=== PATIENT | female | born 1980 | race Caucasian/White ===

== ENCOUNTER 2019-12-08 13:42 | Inpatient (IN) | payer OTHER ==
[2019-12-08] MEDS ORDERED: Lidocaine 1% (PF) 30 ML VIAL ONE (14:20)
[2019-12-08] MEDS ORDERED: NS / Oxytocin 40 units/1000ml 1,000 ML ONE (14:20)
[2019-12-08] MEDS ORDERED: Misoprostol 200 MCG TAB ONE (14:21)
[2019-12-08] MEDS ORDERED: Ibuprofen 800 MG TAB PO PRN (14:30)
[2019-12-08] MEDS ORDERED: Acetaminophen 500 MG TAB PO PRN (14:30)
[2019-12-08] MEDS ORDERED: Carboprost 250 MCG/ML AMP IM PRN (14:30)
[2019-12-08] MEDS ORDERED: Methylergonovine 0.2 MG/ML VIAL IM PRN (14:30)
[2019-12-08] MEDS ORDERED: Promethazine HCl 25 MG/ML VIAL IM PRN (14:30)
[2019-12-08] MEDS ORDERED: Lactated Ringer's 1,000 ML IV SCH (14:30)
[2019-12-08] MEDS ORDERED: Misoprostol 200 MCG TAB PR PRN (14:30)
[2019-12-08] MEDS ORDERED: Lidocaine 1% (PF) 30 ML VIAL SC PRN (14:30)
[2019-12-08] MEDS ORDERED: NS / Oxytocin 40 units/1000ml 1,000 ML IV PRN (14:30)
[2019-12-08] MEDS ORDERED: HYDROcodone/Acetaminophen 5/325 mg Tablet PO PRN ×2 (14:30→18:37)
[2019-12-08] MEDS ORDERED: hydrALAZINE 20 MG/ML VIAL SLOW IVP PRN ×2 (14:30→18:37)
[2019-12-08] MEDS ORDERED: Ondansetron PF 4 MG/2 ML Vial IVP PRN (14:30)
[2019-12-08] MEDS ORDERED: Butorphanol Tartrate 1 MG/ML VIAL SLOW IVP PRN (14:30)
--- NOTE | 2019-12-08 14:35 | PDOC.LDHP ---
Labor and Delivery H&P Chief complaint: contractions HPI: CTX started 4 hours ago. Not really close together but getting more intense. hx significant for GDMA1 and thrombocytopenia of without bleeding issues. Current gestational age (weeks): 40 Due date: 12/07/19 Dating criteria: last menstrual period, first trimester ultrasound Grav: 9 Para: 7 Current complications: gestational diabetes, other (Thrombocytopenia of ) Abnormal US findings: No Current medications: pre-adele vitamins Allergies/Adverse Reactions: Allergies Allergy/AdvReac Type Severity Reaction Status Date / Time No Known Allergies Allergy Verified 05/13/17 16:01 Social history: none - Physical Exam Vital signs reviewed and normal: yes General: NAD, breathing through contractions Heart: RRR Lungs: CTAB Abdomen: gravid Extremeties: no edema FHT: category 1, variability present - Vaginal Exam cm dilated: 8 Effacement: 75% Station: 1+ - OB Labs Blood type: O RH: positive Antibody Screen: negative HIV: negative RPR: negative HEPSAg: negative 1 hour GCT: positive GBS: negative Urine drug screen: not done Rubella: immune - Assessment L&D Assessment: term patient in labor - Plan Plan: admit to L&D, informed consent obtained (Will repeat CBC after delivery for Platelets. H/O no pain meds with deliveries. Anticipate . Patient wants low intervention. Check accu-check for GDMA1.)
[2019-12-08 14:52] VITALS: BMI 28.1
[2019-12-08 14:58] LABS: Hemoglobin 12.6 g/dL (12.0-16.0); Mean Corpuscular HGB CONC 33.7 g/dL (32.0-36.0); Mean Corpuscular Volume 88.9 fL (78.0-98.0); Mean Platelet Volume 11.9 fL (7.4-10.4); Platelet Count 61 thou/uL (130-400); RBC Distribution Width 16.5 % (11.5-14.5); Red Blood Cell (RBC) Count 4.19 mill/uL (4.20-5.40); White Blood Cell (WBC) Count 4.9 thou/uL (4.8-10.8)
[2019-12-08 15:36] LABS: Syphilis Antibody Nonreactive (Nonreactive); Syphilis Antibody Index 0.04 S/CO (<1.00 Non-Reactive)
[2019-12-08 15:37] LABS: HBSAg Index 0.33 S/CO (0-0.99); Hep B Surf Ag Non-Reactive S/CO (NonReactive)
--- NOTE | 2019-12-08 16:17 | PDOC.OPDEL ---
OB Operative/Delivery Note Delivery Dr/Surgeon: Axel Pre-Delivery Diagnosis: active labor Procedure/Post Delivery Dx: spontaneous vaginal delivery (Head OA, no nuchal cord, shoulders and body easily followed. Cord clamped and cut. Cord blood to the lab. Baby to mother's abdomen.) Weeks gestation: 40 Anesthesia: none - Findings A Sex: female - 1 min: 9 - 5 min: 9 - Additional Findings/Plan Placenta delivered: spontaneous (Intact placenta, 3 vessel cord. Uterus firm after delivery.) Repaired Obstetrical Laceration: none Estimated blood loss: 250 Post delivery plan: routine recovery
[2019-12-08] MEDS ORDERED: Bisacodyl 10 MG SUPP PR PRN (18:37)
[2019-12-08] MEDS ORDERED: Milk Of Magnesia 30 ML UDCUP PO PRN (18:37)
[2019-12-08] MEDS ORDERED: Preparation H Ointment 28 GM TUBE PR PRN (18:37)
[2019-12-08] MEDS ORDERED: Lanolin Ointment 7 GM TUBE TOP PRN (18:37)
[2019-12-08] MEDS ORDERED: Benzocaine-Menthol 82.5 ML CAN TOP PRN (18:37)
[2019-12-08] MEDS ORDERED: NS / Oxytocin 40 units/1000ml 1,000 ML IV SCH (18:37)
[2019-12-08] MEDS ORDERED: Acetaminophen 325 MG TAB PO PRN (19:47)
[2019-12-08] MEDS: Docusate Calcium (SURFAK) 240 MG CAP PO SCH (20:47)
[2019-12-08] MEDS: Ferrous Sulfate 325 MG TAB PO SCH (20:48)
[2019-12-08] MEDS ORDERED: Ibuprofen 800 MG TAB PO SCH (22:00)
[2019-12-09 06:19] LABS: #Eosinphils 0.1 thou/uL (0.0-0.7); #Lymphocytes 2.1 thou/uL (1.20-3.40); #Monocytes 0.5 thou/uL (0.11-0.59); #Neutrophils 3.8 thou/uL (1.40-6.50); %Basophils 0.2 % (0.0-1.0); %Eosinophils 1.3 % (0.0-10.0); %Neutrophils 58.5 % (42.0-75.0); Hemoglobin 10.3 g/dL (12.0-16.0); Mean Corpuscular HGB CONC 33.6 g/dL (32.0-36.0); Mean Corpuscular Hemoglobin 30.5 pg (27.0-31.0); Mean Corpuscular Volume 90.7 fL (78.0-98.0); Mean Platelet Volume 11.2 fL (7.4-10.4); Platelet Count 56 thou/uL (130-400); RBC Distribution Width 16.4 % (11.5-14.5); Red Blood Cell (RBC) Count 3.39 mill/uL (4.20-5.40); White Blood Cell (WBC) Count 6.5 thou/uL (4.8-10.8)
[2019-12-09] MEDS: Ferrous Sulfate 325 MG TAB PO SCH ×2 (07:57→18:26)
[2019-12-09] MEDS: Docusate Calcium (SURFAK) 240 MG CAP PO SCH ×2 (08:16→21:31)
[2019-12-10 07:51] VITALS: BP 101/59; TEMP 97.7
[2019-12-10] MEDS: Ferrous Sulfate 325 MG TAB PO SCH (08:39)
[2019-12-10] MEDS: Docusate Calcium (SURFAK) 240 MG CAP PO SCH (08:39)
--- NOTE | 2019-12-10 15:38 | PDOC.PP ---
Post Progress Note Post Day #: 1 Subjective: Doing well. going great. No concerns. PO intake tolerated: yes Flatus: yes Ambulation: yes Vital Signs (12 hours) Temp Pulse Resp BP Pulse Ox 12/10/19 07:51 97.7 F 59 L 20 101/59 L 96 12/10/19 04:58 98.5 F 57 L 18 110/68 99 Weight Weight 164 lb - Physical Examination General: NAD Cardiovascular: no m/r/g, RRR Respiratory: clear to auscultation bilaterally, non-labored breathing Abdominal: + bowel sounds, lochia, no distention, appropriately TTP Result Diagrams: 12/09/19 05:36 Additional Labs: Post Labs Blood Type O POSITIVE 12/08/19 14:28 Hep Bs Antigen Non-Reactive S/CO (NonReactive) 12/08/19 14:28 (1) Thrombocytopenia complicating Code(s): O99.119 - OTH DIS OF BLD/BLD-FORM ORG/IMMUN MECHNSM COMP PREG,UNSP TRI ; D69.6 - THROMBOCYTOPENIA, UNSPECIFIED Status: Acute (2) Vaginal delivery Code(s): O80 - ENCOUNTER FOR FULL-TERM UNCOMPLICATED DELIVERY Status: Acute - Assessment/Plan Routine PP long term tomorrow Plt fell a little more but no s/s of bleeding Lochia normal
--- NOTE | 2019-12-10 15:39 | PDOC.PP ---
Post Progress Note Post Day #: 2 Subjective: Doing well, no complaints. PO intake tolerated: yes Flatus: yes Ambulation: yes Vital Signs (12 hours) Temp Pulse Resp BP Pulse Ox 12/10/19 07:51 97.7 F 59 L 20 101/59 L 96 12/10/19 04:58 98.5 F 57 L 18 110/68 99 Weight Weight 164 lb - Physical Examination General: NAD Cardiovascular: no m/r/g, RRR Respiratory: clear to auscultation bilaterally, non-labored breathing Abdominal: + bowel sounds, lochia, no distention, appropriately TTP Result Diagrams: 12/09/19 05:36 Additional Labs: Post Labs Blood Type O POSITIVE 12/08/19 14:28 Hep Bs Antigen Non-Reactive S/CO (NonReactive) 12/08/19 14:28 (1) Thrombocytopenia complicating Code(s): O99.119 - OTH DIS OF BLD/BLD-FORM ORG/IMMUN MECHNSM COMP PREG,UNSP TRI ; D69.6 - THROMBOCYTOPENIA, UNSPECIFIED Status: Acute (2) Vaginal delivery Code(s): O80 - ENCOUNTER FOR FULL-TERM UNCOMPLICATED DELIVERY Status: Acute - Assessment/Plan Routine care D/C home
== END 2019-12-10 14:30 | disposition home or self-care (01) | DRG 806 ==
LOC: L&D/OP 13:42 → L&D 14:30 → 3SE 18:46
PROVIDERS: ADMIT Family Medicine; ATTEND Family Medicine
PROC: 10E0XZZ Delivery of Products of Conception, External Approach (ICD-10-PCS; principal; 2019-12-08)
DX: O24.429 Gestational diabetes mellitus in childbirth, unspecified control (principal); O99.12 Other diseases of the blood and blood-forming organs and certain disorders involving the immune mechanism complicating childbirth; Z37.0 Single live birth; D69.6 Thrombocytopenia, unspecified; Z3A.40 40 weeks gestation of pregnancy
CPT/HCPCS: 36415; 36416; 85025; 85027; 86780; 86850; 86900; 86901; 87340; J2001